=== PATIENT | male | born 1990 | race Caucasian/White ===

== ENCOUNTER 2019-12-10 07:34 | Outpatient (CLI) | payer BC ==
--- NOTE | 2019-12-10 09:21 | MRI ---
MR OF THE LEFT KNEE WITHOUT CONTRAST INDICATION: Chronic left knee pain TECHNIQUE: Axial and coronal PD fat sat, sagittal T2 fat sat, sagittal PD turbo spin echo and T1 trent nal images were obtained of the left knee. COMPARISON: None. FINDINGS: Joint effusion: None. Semimembranosus-medial gastrocnemius popliteal cyst: Tiny Ramsey's cyst Ligaments: There is nonvisualization of a normal ACL. There is a retracted ACL stump seen on image 20 series 3 and image 19 of series 6 likely related to a chronic complete ACL disruption. The PCL is intact. The MCL and LCLC are intact. Extensor mechanism: Intact. Menisci: Intact. Articular cartilage: There is a near full-thickness region of articular cartilage delamination involv ing the central aspect of the medial femoral condyle measuring 1.1 x 1.3 cm on image 13 of series 5 and image 20 of series 6. Articular cartilage of the lateral femorotibial and patellofemoral compartm ents appears relatively well-maintained. Osseous structures: Normal marrow signal. Popliteus and IT band: Normal. IMPRESSION: 1. Chronic complete ACL disruption. 2. Near full-thickness region articular cartilage delamination involving the central aspect of the me dial femoral condyle measuring 1.1 x 1.3 cm.
== END 2019-12-10 07:35 | disposition home or self-care (01) ==
LOC: TBSIIMAG 07:34
PROVIDERS: ATTEND Physician Assistant
DX: M25.562 Pain in left knee (principal); M25.862 Other specified joint disorders, left knee

== ENCOUNTER 2020-06-14 08:00 | Outpatient (CLI) | payer BC, OTHER ==
[2020-06-15 13:02] LABS: SARS-CoV-2 MS2 Positive; SARS-CoV-2 N Gene Negative; SARS-CoV-2 S Gene Negative; SARS-CoV-2 by NAA Not Detected (NotDetected); SARS-CoV-2 orf1ab Negative
== END 2020-06-14 08:01 | disposition home or self-care (01) ==
LOC: LABBT 08:00
PROVIDERS: ATTEND Orthopaedic Surgery
DX: S83.212A Bucket-handle tear of medial meniscus, current injury, left knee, initial encounter (principal); M94.252 Chondromalacia, left hip; Z20.828 Contact with and (suspected) exposure to other viral communicable diseases
CPT/HCPCS: 87635; U0003

== ENCOUNTER 2020-06-16 06:55 | Day surgery (SDC) | payer BC ==
[2020-06-15 13:15] VITALS: BMI 33.9
[2020-06-16] MEDS ORDERED: Fentanyl 100 MCG/2 ML VIAL ONE ×5 (07:59→11:30)
[2020-06-16] MEDS ORDERED: Midazolam HCl 2 mg/2 ml Vial ONE (07:59)
[2020-06-16] MEDS ORDERED: Ondansetron PF 4 MG/2 ML Vial IVP PRN (08:55)
[2020-06-16] MEDS ORDERED: Ropivacaine 0.2% 550 ML 550 ML NERVE BLCK SCH (08:55)
[2020-06-16] MEDS ORDERED: HYDROcodone/Acetaminophen 10/325 mg Tablet PO PRN ×2 (08:55)
[2020-06-16] MEDS ORDERED: Promethazine HCl 25 MG/ML VIAL IM PRN (08:55)
[2020-06-16] MEDS ORDERED: Zolpidem Tartrate 5 MG TAB PO PRN (08:55)
[2020-06-16] MEDS ORDERED: traMADol HCl 50 MG TAB PO PRN ×2 (08:55)
[2020-06-16] MEDS ORDERED: Fentanyl 100 MCG/2 ML VIAL SLOW IVP PRN (08:56)
[2020-06-16] MEDS ORDERED: PROPOFOL 200 MG/20 ML VIAL ONE (10:30)
[2020-06-16] MEDS ORDERED: Lidocaine 1% PF 5 ML VIAL ONE (10:30)
[2020-06-16] MEDS ORDERED: Ropivacaine 0.5% HCl/PF (150 MG/30 ML VIAL) ONE (10:30)
[2020-06-16] MEDS ORDERED: Dexamethasone 20 MG/5 ML VIAL ONE (10:30)
[2020-06-16] MEDS ORDERED: Ondansetron PF 4 MG/2 ML Vial ONE (10:30)
[2020-06-16] MEDS ORDERED: Ropivacaine 0.2% HCl/PF (40 MG/20 ML VIAL) ONE (10:30)
[2020-06-16] MEDS ORDERED: Ketorolac Tromethamine 30 MG/ML VIAL ONE (10:30)
[2020-06-16] MEDS ORDERED: Bupivacaine HCl 0.5%/Epinephrine 1:200,000/PF 30 ml Vial ONE (10:30)
[2020-06-16] MEDS ORDERED: Ketorolac Tromethamine 30 MG/ML VIAL IVP SCH (12:00)
[2020-06-16] MEDS ORDERED: HYDROcodone/Acetaminophen 5/325 mg Tablet ONE (12:56)
--- NOTE | 2020-06-17 10:56 | OP ---
DATE OF PROCEDURE: 06/16/2020 PREOPERATIVE DIAGNOSES: 1. Left anterior cruciate ligament tear, chronic. 2. Bucket-handle tear of medial meniscus. 3. Chondral defect, medial femoral condyle. POSTOPERATIVE DIAGNOSES: 1. Left anterior cruciate ligament tear, chronic. 2. Bucket-handle tear of medial meniscus. 3. Chondral defect, medial femoral condyle 3 x 4 mm full thickness. PROCEDURE: 1. ACL reconstruction 2. Meniscus Repair 3. Debridement of chondral defect medial femoral condyle APPLICATION SECURITY DEVELOPER: Izaiah Baltazar. ANESTHESIA: Dr. Yang. The patient received an LMA with adductor canal pack and iPACK.. ANTIBIOTICS: Ancef 2 g. TOURNIQUET TIME: 98 minutes at 300 mmHg. IMPLANTS: [employer] FiberStitch meniscal repair x2, two that were in and out. The patient had a 2.8 x 25 mm metal interference screw with a single 36 mm 4.5 screw with washer, 6.5 x 36 mm cortical screw. COMPLICATIONS: None. HISTORY OF PRESENT ILLNESS: Mr. Emerson is a 29-year-old male who had 7-year history of ACL tear who presented to me, had acute increase in pain, was noted to have stable meniscus with a chronic tear. The patient was into therapy, then not return until after COVID, was noted to have a bucket-handle meniscus tear as well as the chondral defect. I discussed with the patient risks and benefits of ACL reconstruction with a medial meniscus repair and a meniscal repair and the OCD. I discussed the long-term risk of arthritis, damage to vital structures, nerves, arteries and tendons, failure of meniscal repair, decreased range of motion, continued pain despite surgical intervention, damage to vital structures, loss of life or limb, blood clots. The patient understood the risks and benefits of the procedure and elected to proceed. DESCRIPTION OF PROCEDURE: Time-out was performed designating the patient's left lower extremity as the operative site based on site, consents, and markings. The patient's left lower extremity was prepped and draped in sterile fashion in the leg positioner with knee flexed. We took a time out. I then took the tourniquet up to a total of 98 minutes. Anterior, lateral, anteromedial portal to visualize inside the joint, debrided the fat pad. Immediately saw the bucket handle tear of the meniscus which I reduced. There was a small radial tear, but I felt that it was a stable remnant and would be reconstructible. Therefore, I moved back and made a midline incision down through skin down through the paratenon, down to the patellar tendon, took a 10 mm section of the tendon, cutting both sides removing the plugs, closing the patellar tendon with 0 Vicryl. We then moved back to the meniscus. The meniscus had been reduced, used a shaver , medial portal and debrided along the medial aspect of the knee. Being happy with that, we placed a FiberStitch implant medially, starting anterior and medially form the lateral portal of the medial aspect and came from lateral, passing one stitch, stitching it back in place and cutting, a second stitch, passing down and cutting. There was a little radial tear which I cleaned back to stable remnant. A third fiberstich was tried with failed 2 passes. The meniscus was stable therefore with continued. There was a medial femoral condyle defect that I probed. I saw it was about 3 x 4 in its full-thickness defect. I just debrided some of the small unstable component. I placed the 3rd stitch which I passed in and out. Once it did not stay, I passed a 2nd time. I felt that if I continued it might cause further damage, therefore I stopped. The meniscus was stable throughout its course. I removed all the excess suture debris, washed out the joint and moved back to the patient's ACL. My graft was being prepared on the back table by my promotions assistant sales marketing. We cleaned up the notchplasty, finished our diagnostic scope lateral and patellofemoral joint, saw no other defects, moved from our notchplasty placed over the top, drilled a 35 mm hole. We then did the [id number] guide of our tibia and passed and drilled for our tibia, placing in the posteromedial footprint of the ACL stump. Being happy with overall alignment and position in the knee. We passed our graft, placed our interference anchor holding into place, cycled the knee and placed our 2nd interferes anchor in place, looked to make sure the interference anchor was out of the knee joint. I placed a drill hole for washer and 6.5 screw, tied around this and cut those. The patient, after cycled, was closed and added interference was placed in about 5-10 degrees of extension and the patient hyperextends,. The patient was washed. We bone grafted the remnant plugs to our patella as well as the tibia closed over top, closed the paratenon, closed subcu and skin rd, as well as our lateral and anteromedial and anterolateral portals. My promotions assistant sales marketing helped me with determining the graft, positioning and drilling of the tunnels, as well as closure throughout the case. The patient will be discharged home. He will be touchdown weightbearing to his left lower extremity. Given his meniscal repair, will work on range of motion. I will see him back in about 2 weeks. The patient will stay touchdown weightbearing for a total of 4 weeks. Job ID: [id number] [facility]
== END 2020-06-16 14:20 | disposition home or self-care (01) ==
LOC: SDC 06:55
PROVIDERS: ATTEND Orthopaedic Surgery
PROC: 0SQC4ZZ Repair Right Knee Joint, Percutaneous Endoscopic Approach (ICD-10-PCS; principal; 2020-06-16)
PROC: 3E0T3BZ Introduction of Anesthetic Agent into Peripheral Nerves and Plexi, Percutaneous Approach (ICD-10-PCS; principal; 2020-06-16)
PROC: 0MRN47Z Replacement of Right Knee Bursa and Ligament with Autologous Tissue Substitute, Percutaneous Endoscopic Approach (ICD-10-PCS; principal; 2020-06-16)
DX: S83.512A Sprain of anterior cruciate ligament of left knee, initial encounter (principal); S83.212A Bucket-handle tear of medial meniscus, current injury, left knee, initial encounter; M94.262 Chondromalacia, left knee; X50.1XXA Overexertion from prolonged static or awkward postures, initial encounter; Y99.0 Civilian activity done for income or pay
CPT/HCPCS: A4306; C1713; J0670; J0690; J1100; J1885; J2250; J2405; J2704; J2795; J3010